=== PATIENT | female | born 1980 | race Caucasian/White ===

== ENCOUNTER → 2019-08-26 | Outpatient (CLI) | payer OTHER ==
--- NOTE | 2019-08-26 14:47 | 2DMMODE ---
[place] [address] 2 D/M-MODE ECHOCARDIOGRAM Name: YOONKIANA Room: [facility]#: [id number] Admission: 08/26/19 Attend Phys: Moses Barker MD Discharge: Date of : 76 Date of Service: 08/26/19 1446 Report #: [id number] THIS REPORT FOR: //name// APPROVED REPORT Study performed: 08/26/2019 12:34:38 EXAM: Comprehensive 2D, Doppler, and color-flow Echocardiogram Patient Location: Out-Patient BSA: 2.08 HR: 85 bpm BP: 120/60 mmHg Other Information Study Quality: Good Indications Dyspnea 2D Dimensions IVSd: 11.58 (7-11mm) LVOT Diam: 20.32 (18-24mm) LVDd: 43.10 mm PWd: 10.39 (7-11mm) Ascending Ao: 24.17 (22-36mm) LVDs: 28.13 (25-40mm) Aortic Root: 22.51 mm Volumes Left Atrial Volume (Systole) LA ESV Index: 15.30 mL/m2 Aortic Valve AoV Peak Jonny.: 1.27 m/s AO Peak Gr.: 6.40 mmHg LVOT Max P.98 mmHg AO Mean Gr.: 3.85 mmHg LVOT Mean P.65 mmHg LVOT Max V: 1.22 m/s AO V2 VTI: 24.35 cm LVOT Mean V: 0.74 m/s MELCHOR (VTI): 3.23 cm2 LVOT V1 VTI: 24.24 cm Mitral Valve E/A Ratio: 1.35 MV Decel. Time: 176.12 ms MV E Max Jonny.: 0.78 m/s MV PHT: 51.07 ms MVA (PHT): 4.31 [place]2 [place] [address] 2 D/M-MODE ECHOCARDIOGRAM Name: KIANA YOON Room: [facility]#: [id number] Admission: 08/26/19 Attend Phys: Moses Barker MD Discharge: Date of : 76 Date of Service: 08/26/19 1446 Report #: [id number] TDI E/Lateral E': 6.00 E/Medial E': 7.09 Medial E' Jonny.: 0.11 m/s Lateral E' Jonny.: 0.13 m/s Pulmonary Valve PV Peak Jonny.: 0.91 m/s PV Peak Gr.: 3.30 mmHg Left Ventricle The left ventricle is normal size. There is normal LV segmental wall motion. There is normal left ventricular wall thickness. Left ventricular systolic function is normal. The left ventricular ejection fraction is within the normal range. LVEF is 55-60%. The left ventricular diastolic function is normal. Right Ventricle The right ventricle is normal size. The right ventricular systolic function is normal. Atria The left atrium size is normal. The right atrium size is normal. Aortic Valve The aortic valve is normal in structure. No aortic regurgitation is present. There is no aortic valvular stenosis. Mitral Valve The mitral valve is normal in structure. There is no mitral valve regurgitation noted. No evidence of mitral valve stenosis. Tricuspid Valve The tricuspid valve is normal in structure. There is no tricuspid valve regurgitation noted. Pulmonic Valve Pulmonic valve is not well visualized. There is no pulmonic valvular regurgitation. Great Vessels The aortic root is normal in size. IVC is normal in size and collapses >50% with inspiration. Pericardium There is no [place] [address] 2 D/M-MODE ECHOCARDIOGRAM Name: KIANA YOON Room: [facility]#: [id number] Admission: 08/26/19 Attend Phys: Moses Barker MD Discharge: Date of : 76 Date of Service: 08/26/19 1446 Report #: [id number] <Conclusion> Left ventricular systolic function is normal. The left ventricular ejection fraction is within the normal range. <ELECTRONICALLY SIGNED> By: Moses Barker MD, FACRamonita 08/26/19 1446 1446 1446 Moses Barker MD, [facility] /INF
== END ==
LOC: M.CRD 12:27
DX: R06.02 Shortness of breath (principal); R06.00 Dyspnea, unspecified

== ENCOUNTER → 2021-02-09 | Outpatient (CLI) | payer OTHER | LOC: M.ULTRA 10:00 | PROVIDERS: ATTEND Nurse Practitioner Family | DX: R22.9 Localized swelling, mass and lump, unspecified (principal) ==